=== PATIENT | male | born 1970 | race Caucasian/White ===

== ENCOUNTER 2020-11-19 19:00 | Emergency (ER) | payer OTHER ==
[~2020-11-19] VITALS: Ht 162.6 cm; Wt 68.0 kg
[2020-11-19] MEDS ORDERED: INSULIN REGULAR (HUMULIN R) 300UNITS/3ML VIAL IV ONE (19:30)
[2020-11-19] MEDS ORDERED: SODIUM CHLORIDE 0.9% 1,000 ML IV ONE ×2 (19:30)
[2020-11-19 20:16] LABS: CHLORIDE 99 mEq/L (98-107)
[2020-11-19 20:25] LABS: BETA HYDROXYBUTYRATE 0.6 mMol/L (0.0-0.3)
[2020-11-19] MEDS ORDERED: INSLIS SUBCUT (22:36)
[2020-11-19] MEDS ORDERED: METF-873 MT (22:36)
[2020-11-19 22:46] VITALS: BP 126/74
== END 2020-11-19 22:47 | disposition home or self-care (01) ==
LOC: ER 19:00
DX: E11.65 Type 2 diabetes mellitus with hyperglycemia (principal); Z91.14 Patient's other noncompliance with medication regimen; Z79.4 Long term (current) use of insulin
CPT/HCPCS: 36415; 80053; 82010; 82962; 96374; 99283; J1815; J7030

== ENCOUNTER 2021-01-25 11:15 | Emergency (ER) | payer BC, OTHER ==
[~2021-01-25] VITALS: Ht 167.6 cm; Wt 56.0 kg
[~2021-01-25 11:15] MED LIST: INSLIS SUBCUT; METF-873 MT
[2021-01-25 11:45] VITALS: BP 121/83
[2021-01-25] MEDS: LIDOCAINE HCL/PF 1% 10 MG/ML 5ML VIAL INFIL ONE (12:08)
[2021-01-25] MEDS: BACITRACIN ZINC OINT UDPKT TOP ONE (12:09)
[2021-01-25] MEDS: TETANUS, DIPHTHERIA, PERTUSSIS VAC/PF 0.5ML (>7YR OLD) IM ONE (12:09)
[2021-01-25] MEDS: ACETAMINOPHEN WITH CODEINE 300/30MG TABLET PO ONE (12:09)
[2021-01-25] MEDS ORDERED: BO1 TP (13:12)
== END 2021-01-25 13:32 | disposition home or self-care (01) ==
LOC: ER 11:15
DX: S61.411A Laceration without foreign body of right hand, initial encounter (principal); E11.9 Type 2 diabetes mellitus without complications; X58.XXXA Exposure to other specified factors, initial encounter; Y93.89 Activity, other specified; Y92.89 Other specified places as the place of occurrence of the external cause; Y99.8 Other external cause status
CPT/HCPCS: 12002; 90471; 90715; 99283; A4217; J3490; Z7610

== ENCOUNTER 2021-11-22 14:37 | Emergency (ER) | payer OTHER ==
[~2021-11-22] VITALS: Ht 167.6 cm; Wt 76.0 kg
[~2021-11-22 14:37] MED LIST changes: +BO1 TP
[2021-11-22 14:49] VITALS: BP 114/73
[2021-11-22] MEDS ORDERED: INSLIS SUBCUT (15:09)
== END 2021-11-22 16:02 | disposition home or self-care (01) ==
LOC: ER 14:37
DX: E11.9 Type 2 diabetes mellitus without complications (principal); Z76.0 Encounter for issue of repeat prescription
CPT/HCPCS: 82962; 99283

== ENCOUNTER 2023-03-12 16:26 | Emergency (ER) | payer OTHER ==
[~2023-03-12] VITALS: Ht 167.6 cm; Wt 83.0 kg
[2023-03-12 16:36] VITALS: O2SAT 97
[2023-03-12] MEDS ORDERED: INSU100V37 SQ (16:56)
[2023-03-12 17:21] VITALS: BP 139/83; PULSE 100; RESP 18; TEMP 98.7
== END 2023-03-12 17:28 | disposition home or self-care (01) ==
LOC: ER 16:26
DX: E11.65 Type 2 diabetes mellitus with hyperglycemia (principal)
CPT/HCPCS: 82962; 99283